=== PATIENT | male | born 1985 | race Caucasian/White ===

== ENCOUNTER 2021-12-24 18:56 | Inpatient (IN) | payer MEDICAID ==
[~2021-12-24] VITALS: Ht 177.8 cm; Wt 173.3 kg
[2021-12-24 20:16] VITALS: BP_SYST 130
[2021-12-24] MEDS ORDERED: iohexoL 350 mgI/mL, 100 ML INFUS..BTL IV ONE (21:54)
[2021-12-24 22:00] LABS: BASOPHILS # (AUTO) 0.1 K/uL (0.0-0.2); BASOPHILS % (AUTO) 0.9 % (0.0-2.0); EOSINOPHILS # (AUTO) 0.2 K/uL (0.0-0.4); EOSINOPHILS % (AUTO) 3.1 % (0.0-4.0); HEMATOCRIT 47.2 % (36-54); LYMPHOCYTES # (AUTO) 1.9 K/uL (1.0-5.5); LYMPHOCYTES % (AUTO) 25.3 % (20.5-51.5); MEAN CORPUSCULAR HEMOGLOBIN 32 pg (27-31); MEAN CORPUSCULAR HGB CONC 34 % (32-36); MEAN CORPUSCULAR VOLUME 93 fL (79.0-98.0); MONOCYTES # (AUTO) 0.7 K/uL (0.0-1.0); MONOCYTES % (AUTO) 8.9 % (1.7-9.3); NEUTROPHILS # (AUTO) 4.6 K/uL (1.8-7.7); NEUTROPHILS % (AUTO) 61.8 % (40.0-70.0); PLATELET COUNT (AUTO) 187 K/uL (130-430); RED BLOOD CELL COUNT(AUTO) 5.05 MIL/uL (4.2-6.2); RED CELL DISTRIBUTION WIDTH 13.7 % (9.0-15.0); WHITE BLOOD COUNT (AUTO) 7.4 K/uL (4.8-10.8)
[2021-12-24 22:19] LABS: ANION GAP 3 (5-15); CALCIUM 8.7 mg/dL (8.4-11.0); CHLORIDE 105 mmol/L (98-107); CREATININE 0.98 mg/dL (0.55-1.30); GLUCOSE 116 mg/dL (70-99); UREA NITROGEN, BLOOD 18 mg/dL (8-21)
[2021-12-24 22:28] LABS: ALANINE AMINOTRANSFERASE 47 U/L (12-78); ALBUMIN 3.7 g/dL (3.4-4.8); ASPARTATE AMINOTRANSFERASE 27 U/L (10-37); TOTAL BILIRUBIN 0.3 mg/dL (0.0-1.0)
[2021-12-24 23:25] LABS: GFR AFRICAN AMERICAN 110 mL/min (>90)
[2021-12-25] MEDS ORDERED: ASPIRIN 325 MG TABLET PO ONE (00:15)
[2021-12-25 02:25] LABS: BILIRUBIN,URINE NEGATIVE (NEGATIVE); BLOOD, URINE NEGATIVE (NEGATIVE); CLARITY/URINE CLEAR (CLEAR); COLOR,URINE YELLOW (YELLOW); GLUCOSE,URINE NEGATIVE (NEGATIVE); KETONES,URINE NEGATIVE (NEGATIVE); LEUKOCYTE ESTERASE ,URINE NEGATIVE (NEGATIVE); NITRITE, URINE NEGATIVE (NEGATIVE); PH,URINE 5.5 (5.0-8.0); PROTEIN URINE NEGATIVE (NEGATIVE); UROBILINOGEN,URINE 0.2 (0.2-1.0)
[2021-12-25 02:38] LABS: BARBITURATE, URINE NEGATIVE (NEG <=200); BENZODIAZEPINE, URINE NEGATIVE (NEG <=150); CANNABINOID, URINE NEGATIVE (NEG <=50); COCAINE, URINE NEGATIVE (NEG <=150); METHAMPHETAMINES SCREEN,URINE NEGATIVE (NEG <=500); OPIATE, URINE NEGATIVE (NEG <=100); PHENCYCLIDINE SCREEN,URINE NEGATIVE (NEG <=25); UR TRICYCLIC ANTIDEPRESSANTS NEGATIVE (NEG <=300); URINE AMPHETAMINE NEGATIVE (NEG <=500); URINE METHADONE NEGATIVE (NEG <=200); URINE OXYCODONE SCREEN NEGATIVE (NEG <=100); URINE PROPOXYPHENE SCREEN NEGATIVE (NEG <=300)
[2021-12-25] MEDS ORDERED: amLODIPine BESYLATE 5 MG TABLET PO ONE ×2 (06:00→11:30)
[2021-12-25] MEDS ORDERED: AMLO5TAB92 PO (06:35)
[2021-12-25] MEDS ORDERED: VITD2000 PO (06:35)
[2021-12-25] MEDS ORDERED: LOSA50TA3 PO (06:35)
[2021-12-25] MEDS ORDERED: MAGN64TA13 PO (06:35)
[2021-12-25] MEDS ORDERED: LOSARTAN POTASSIUM 50 MG TABLET (COZAAR) PO SCH (09:00)
[2021-12-25 09:44] VITALS: BP_SYST 120
[2021-12-25 09:45] VITALS: BP_SYST 120
[2021-12-25] MEDS ORDERED: FLU VACC QS2022-23(6MOS UP)/PF 0.5 ML/SYR SYRINGE I.M. PRN (10:00)
[2021-12-25] MEDS ORDERED: HYDROcodone/ACETAMIN 5-325 MG TAB (NORCO/ VICODIN) PO PRN (10:15)
[2021-12-25] MEDS ORDERED: ONDANSETRON HCL 4 MG/2 ML VIAL IVP PRN (10:15)
[2021-12-25] MEDS ORDERED: HYDROcodone/ACETAMIN 10-325 MG TAB PO PRN (10:15)
[2021-12-25] MEDS ORDERED: NALOXONE HCL 0.4 MG/ML AMP (NARCAN) IVP PRN ×2 (10:15)
[2021-12-25] MEDS ORDERED: ACETAMINOPHEN 325 MG TABLET PO PRN ×2 (10:15→11:30)
[2021-12-25] MEDS ORDERED: ACETAMINOPHEN 650 MG/20.3 ML UDC GT PRN (10:30)
[2021-12-25 10:52] LABS: BASOPHILS % (AUTO) 0.5 % (0.0-2.0); EOSINOPHILS # (AUTO) 0.2 K/uL (0.0-0.4); EOSINOPHILS % (AUTO) 2.5 % (0.0-4.0); HEMATOCRIT 46.9 % (36-54); HEMOGLOBIN 15.9 g/dL (14.0-18.0); LYMPHOCYTES # (AUTO) 1.2 K/uL (1.0-5.5); LYMPHOCYTES % (AUTO) 19.6 % (20.5-51.5); MEAN CORPUSCULAR HEMOGLOBIN 32 pg (27-31); MEAN CORPUSCULAR HGB CONC 34 % (32-36); MEAN CORPUSCULAR VOLUME 94 fL (79.0-98.0); MONOCYTES # (AUTO) 0.4 K/uL (0.0-1.0); MONOCYTES % (AUTO) 6.5 % (1.7-9.3); NEUTROPHILS # (AUTO) 4.3 K/uL (1.8-7.7); NEUTROPHILS % (AUTO) 70.9 % (40.0-70.0); PLATELET COUNT (AUTO) 197 K/uL (130-430); RED CELL DISTRIBUTION WIDTH 13.8 % (9.0-15.0)
[2021-12-25 10:55] LABS: CALCIUM 8.9 mg/dL (8.4-11.0); CREATININE 0.81 mg/dL (0.55-1.30)
[2021-12-25] MEDS ORDERED: CHOLECALCIFEROL (VITAMIN D3) 2,000 UNIT TABLET PO ONE (11:30)
[2021-12-25] MEDS ORDERED: MAGNESIUM CHLORIDE 64 MG TABLET.DR PO ONE (11:30)
[2021-12-25] MEDS ORDERED: NORMAL SALINE 5 ML DISP.SYRIN IVF SCH (14:00)
[2021-12-25] MEDS: NORMAL SALINE 5 ML DISP.SYRIN IVF SCH ×2 (14:26→20:22)
[2021-12-25 16:30] VITALS: BP_SYST 116
[2021-12-25 20:00] VITALS: BP_SYST 115
[2021-12-25] MEDS: LOSARTAN POTASSIUM 50 MG TABLET (COZAAR) PO SCH (20:21)
[2021-12-26] MEDS: NORMAL SALINE 5 ML DISP.SYRIN IVF SCH ×2 (04:58→14:00)
[2021-12-26 07:18] LABS: BASOPHILS % (AUTO) 0.6 % (0.0-2.0); EOSINOPHILS # (AUTO) 0.2 K/uL (0.0-0.4); EOSINOPHILS % (AUTO) 2.9 % (0.0-4.0); HEMATOCRIT 47.7 % (36-54); LYMPHOCYTES # (AUTO) 1.8 K/uL (1.0-5.5); LYMPHOCYTES % (AUTO) 27.1 % (20.5-51.5); MEAN CORPUSCULAR HEMOGLOBIN 32 pg (27-31); MEAN CORPUSCULAR HGB CONC 34 % (32-36); MEAN CORPUSCULAR VOLUME 94 fL (79.0-98.0); MONOCYTES # (AUTO) 0.5 K/uL (0.0-1.0); MONOCYTES % (AUTO) 7.1 % (1.7-9.3); NEUTROPHILS % (AUTO) 62.3 % (40.0-70.0); PLATELET COUNT (AUTO) 217 K/uL (130-430); RED BLOOD CELL COUNT(AUTO) 5.06 MIL/uL (4.2-6.2); RED CELL DISTRIBUTION WIDTH 13.8 % (9.0-15.0); WHITE BLOOD COUNT (AUTO) 6.5 K/uL (4.8-10.8)
[2021-12-26 07:46] LABS: ALBUMIN 3.5 g/dL (3.4-4.8); CALCIUM 8.1 mg/dL (8.4-11.0); CREATININE 0.78 mg/dL (0.55-1.30); PHOSPHORUS 3.3 mg/dL (2.7-4.5); THYROID STIMULATING HORMONE 2.29 uIu/mL (0.34-4.82); TOTAL BILIRUBIN 0.8 mg/dL (0.0-1.0)
[2021-12-26 08:09] VITALS: BP_SYST 129
[2021-12-26] MEDS ORDERED: MAGNESIUM CHLORIDE 64 MG TABLET.DR PO SCH (09:00)
[2021-12-26] MEDS ORDERED: CHOLECALCIFEROL (VITAMIN D3) 2,000 UNIT TABLET PO SCH (09:00)
[2021-12-26] MEDS ORDERED: amLODIPine BESYLATE 5 MG TABLET PO SCH ×2 (09:00)
[2021-12-26] MEDS: LOSARTAN POTASSIUM 50 MG TABLET (COZAAR) PO SCH (09:17)
[2021-12-26 14:37] VITALS: BP_SYST 128
[2021-12-26 18:17] VITALS: BP_SYST 128
[2021-12-26 18:24] VITALS: BP_SYST 128
== END 2021-12-26 20:20 | disposition home or self-care (01) | DRG 45 ==
LOC: SED 18:56 → STU 12-25 01:02
PROVIDERS: ADMIT Preventive Medicine Preventive Medicine/Occupational Environmental Medicine; ATTEND Preventive Medicine Preventive Medicine/Occupational Environmental Medicine
DX: I63.9 Cerebral infarction, unspecified (principal); Z68.43 Body mass index [BMI] 50.0-59.9, adult; I10 Essential (primary) hypertension; R29.810 Facial weakness; F19.90 Other psychoactive substance use, unspecified, uncomplicated; E66.01 Morbid (severe) obesity due to excess calories; Z20.822 Contact with and (suspected) exposure to COVID-19; E83.52 Hypercalcemia; E78.2 Mixed hyperlipidemia; Z91.041 Radiographic dye allergy status; Z91.013 Allergy to seafood; Z79.899 Other long term (current) drug therapy
CPT/HCPCS: 36415; 70450-TC; 70496; 70498; 71045; 76376; 80048; 80053; 80061; 80307; 81003; 82962; 83735; 84100; 84443; 84484; 85025; 85610-TC; 85730-TC; 86886; 86900; 86901; 93005; 93306; 99291; G0378; Q9967